=== PATIENT | female | born 1945 | race Caucasian/White ===

== ENCOUNTER 2023-06-06 10:48 | Emergency (ER) | payer MEDICARE, SELFPAY ==
[2023-06-06] VITALS (11 sets, daily range): BP systolic 146–165; BP diastolic 65–79; PULSE 74–91; RESP 16–20; TEMP 36.5–36.9; O2SAT 95–100; BMI 25.7
--- NOTE | ~2023-06-06 | CT_ITS ---
EXAM: Noncontrast CT scan of the head and cervical spine. INDICATION: Fall with posterior head strike COMPARISON: None available TECHNIQUE: Axial slices were obtained from skull base to vertex and displayed. This was followed by helical, multislice, multidetector axial images from the occiput to the upper thorax. Coronal and sagittal reformats of the cervical spine in addition to coronal reformats of the head were obtained at the technologist workstation. DLP: 887 mGy-cm FINDINGS: HEAD: There is no evidence of acute intracranial hemorrhage or territorial infarction. No abnormal mass effect or midline shift is appreciated. Andrews-white differentiation is well preserved. No extra-axial fluid collections. The ventricular system and cortical sulci are prominent, consistent with volume loss. There are areas of low density in the periventricular and subcortical white matter, most consistent with sequelae of microvascular ischemic change. The osseous structures and soft tissues are normal. There are calcifications of the cavernous internal carotid arteries. The visualized paranasal sinuses and mastoid air cells are well aerated. SPINE: Alignment of the cervical spine is within normal limits. Normal C1/2 articulation. Cervical vertebral body heights are maintained. There are degenerative changes of C1/2. There is moderate to severe loss of disc space height at the C4/5 and C6/7 levels. There are moderate-sized osteophytes within the mid to lower cervical spine. There is a prominent posterior disc osteophyte complex at the C4/5 level. There is moderate to severe diffuse facet hypertrophy bilaterally. Visualized lung apices are well aerated. CT/CT cervical spine wo IV con IMPRESSION: 1. No acute intracranial pathology. 2. No fractures or dislocations of the cervical spine.
--- NOTE | ~2023-06-06 | XR_ITS ---
EXAMINATION: XR CHEST CLINICAL INFORMATION: Dizziness. COMPARISON: None available. TECHNIQUE: 2 views of the chest were obtained. FINDINGS: No significant abnormality is noted involving the heart, lungs, mediastinum, bony thorax or soft tissues. XR/XR chest 2V IMPRESSION: Unremarkable chest examination.
--- NOTE | ~2023-06-06 | CT_ITS ---
EXAMINATION: CT ANGIOGRAM OF THE CHEST WITH AND WITHOUT CONTRAST (CT PULMONARY ANGIOGRAM FOR PE) CLINICAL INFORMATION: Syncope, elevated d-dimer. COMPARISON: Chest radiograph earlier today. TECHNIQUE: Prior to contrast administration, noncontrast localization images were obtained. Subsequently, multidetector volumetric imaging was performed from the thoracic inlet to below the diaphragms following the administration of 80 mL Omnipaque 350 intravenous contrast. No contrast reaction reported Sagittal, coronal, and MIP oblique sagittal reformatted images were obtained on the CT workstation, uploaded to PACS, and reviewed. This CT examination was performed using dose optimization techniques as appropriate, variously including the following: *Automated exposure control *Adjustment of mA and/or kV according to patient size (this includes techniques or standardized protocols for targeted exams where dose is matched to indication/reason for exam; i.e. extremities or head) *Use of iterative reconstruction technique Total exam dose-length product 160 mGy-cm FINDINGS: QUALITY OF STUDY/CONTRAST BOLUS: Satisfactory. PULMONARY ARTERIES: No pulmonary emboli. THORACIC AORTA: No aneurysm. LUNG: No focal consolidation or significant groundglass disease. Central airways are patent. Mild diffuse bronchial wall thickening. A few bilateral pulmonary nodules, for example a 3 mm solid nodule in the right apex (6:64), a 6 mm groundglass nodule in the right apex (6:74), a 5 mm groundglass nodule in the right middle lobe (6:212), a 5 mm solid nodule in the right upper lobe (6:118) and a 3 mm pulmonary nodule in the left upper lobe (6:185). PLEURA: No pleural effusion or pneumothorax. MEDIASTINUM: Mild cardiomegaly. Trace amount of pericardial fluid. No mediastinal or hilar lymphadenopathy. No evidence of septal bowing or right heart strain. CORONARY ARTERY CALCIFICATION: Urinary artery calcifications are present. CHEST WALL/AXILLA: No axillary or internal mammary lymphadenopathy. OSSEOUS STRUCTURES: No acute or suspicious osseous abnormality. UPPER ABDOMEN: Unremarkable. No reflux of contrast into the hepatic veins to suggest elevated right heart pressures. CT/CT angio chest PE protocol IMPRESSION: 1. No evidence of pulmonary embolism or increased right-sided heart pressures. 2. Mild diffuse bronchial wall thickening which is nonspecific and could be associated with asthma, bronchitis or reactive airways disease. 3. Multiple solid and groundglass pulmonary nodules, the largest measuring up to 6 mm. According to the UPDATED 2017 Fleischner Society recommendations, the advised follow-up imaging for multiple solid nodules measuring up to 6-8 mm is follow-up CT at 3 to 6 months.
--- NOTE | 2023-06-06 10:54 | ECG_ITS ---
Test Reason : SYNCOPE Blood Pressure : / mmHG Vent. Rate : 079 BPM Atrial Rate : 079 BPM P-R Int : 176 ms QRS Dur : 130 ms QT Int : 400 ms P-R-T Axes : 035 -30 112 degrees QTc Int : 458 ms Normal sinus rhythm Left axis deviation Left bundle branch block Abnormal ECG No previous ECGs available Referred By: Generic ED Physician Electronically Signed By:MARYAM BURCH MD
[2023-06-06 11:54] LABS: MANUAL DIFF FLAG NO
[2023-06-06 11:59] LABS: Basophils Absolute Auto 0.1 X10*3/uL (0.0-0.2); Basophils Percent Auto 0.5 % (0-2); Eosinophils Absolute Auto 0.2 X10*3/uL (0.0-0.4); Eosinophils Percent Auto 1.3 % (0-4); Hematocrit 36.3 % (37.0-47.0); Hemoglobin 11.9 g/dl (12.0-16.0); Imm Gran Abs Auto 0.05 X10*3/uL (0.00-0.03); Imm Gran Pct Auto 0.4 % (0.0-0.4); Lymphocytes Absolute Auto 2.9 X10*3/uL (1.2-4.9); Lymphocytes Percent Auto 24.7 % (20-40); Mean Corpuscular HGB Conc 32.8 g/dl (31.0-35.0); Mean Corpuscular Hemoglobin 31.6 pg (27.0-33.0); Mean Corpuscular Volume 96.3 fL (80.0-98.0); Mean Platelet Volume 10.3 fL (9.4-12.3); Monocytes Absolute Auto 0.7 X10*3/uL (0.1-1.2); Monocytes Percent Auto 5.9 % (2-11); Neutrophils Absolute Auto 7.8 x10*3/uL (2.0-8.3); Neutrophils Percent Auto 67.2 % (45-73); Platelet Count 209 X10*3/uL (160-400); Red Blood Count 3.77 X10*6/uL (4.20-5.50); Red Cell Distribution Width 14.3 % (11.0-16.0); White Blood Count 11.6 X10*3/uL (4.8-10.8)
[2023-06-06 12:09] LABS: Anion Gap 15 (12-20); Blood Urea Nitrogen 20 mg/dL (9-16); Calcium 9.9 mg/dL (8.4-10.2); Carbon Dioxide 27 mmol/L (22-29); Chloride 105 mmol/L (96-108); Creatinine Clr Calc Pharmacy 49.5; Estimated Glomerular Filt Rate > 60; Glucose Random 109 mg/dL (60-115); Potassium 4.6 mmol/L (3.3-5.1); Sodium 142 mmol/L (135-145)
--- NOTE | 2023-06-06 12:09 | MHC.PIE ---
Addendum entered by Galina Hooper RN 06/06/23 12:35: Patient is currently on aspirin. Patient reports small amount of blood to back of head. Patient currently in c-collar. Patient denies headache or dizziness at this time. Original Note: Patient came to ED via ambulance due to a syncope episode while in the shower. Patient reports feeling dizzy right before it happened. Patient reports head strike to back of head, denies pain at this time. Patient is alert and oriented, respirations even and unlabored. vss, normal sinus on monitor.
--- NOTE | 2023-06-06 12:21 | ED.DIZZY ---
HPI - Dizziness General Chief Complaint: Syncope Stated Complaint: SYNCOPE IN SHOWER,HIT HEAD,+CCOLLAR PER EMS Time Seen by Provider: 06/06/23 12:21 Source: patient, family (), EMS and RN notes reviewed Mode of arrival: EMS Limitations: no limitations History of Present Illness HPI Narrative: 78 year old female with pmhx significant for HTN and HDL presents to the ED today via EMS from home for evaluation of head pain s/p fall prior to arrival. Patient states that she had just gotten out of the shower and was drying off when she suddenly felt lightheaded. She tried making her way from the bathroom to her bedroom when she lost consciousness. Her in the next room heard the thud and immediately came to help patient. She immediately regained consciousness on his arrival. Reports posterior head strike on floor. She takes 81 mg aspirin daily. No anticoagulation. She only endorses feeling lightheaded prior to fall. Her only concern at present is posterior head pain. Not dizzy at present. Does not describe this as a room spinning sensation. States she has never had an episode like this before. She denies any preceding chest pain, vision changes, shortness of breath, palpitations. Denies recent travel or long car rides. Related Data Allergies Allergy/AdvReac Type Severity Reaction Status Date / Time Sulfa (Sulfonamide Allergy Flushing Verified 06/06/23 11:06 Antibiotics) Review of Systems Review of Systems: Constitutional: No fever, chills, fatigue, night sweats, weight changes ENT/Mouth: No ear pain, hearing loss, nasal congestion, sinus pain, rhinorrhea, sore throat Eyes: No eye pain, swelling, redness, vision changes, discharge Cardio: No chest pain, palpitations, NUNEZ, orthopnea, peripheral edema Pulm: No SOB, cough, sputum, wheezing, dyspnea, hemoptysis GI: No nausea, vomiting, hematemesis, abdominal pain, diarrhea, constipation, hematochezia, melena : No irregular bleeding, dysuria, frequency, urgency, hesitancy, hematuria, flank pain, urinary flow changes, urinary incontinence or retention MSK: No back pain, neck pain, joint pain, myalgias Skin: No lesions, rashes Neuro: No weakness, numbness, paresthesias, LOC, dizziness, headache Psych: No anxiety/panic, depression, SI/HI, AH/VH All other systems reviewed and are negative. PENDING SALE TO [facility] Past Medical History Attestation statement: The following information was validated with the patient. Source: old records reviewed and nursing notes reviewed Social History Social History Smoked in Last 30 Days: No Use of substances other than those prescribed or required for medical reasons: No Advance Directives: No Physical Exam Vital Signs: Vital Signs: Last Vital Signs Temp 98.5 F 06/06/23 19:47 Pulse 78 06/06/23 19:47 Resp 18 06/06/23 19:47 BP 165/68 H 06/06/23 19:47 Pulse Ox 95 06/06/23 19:47 O2 Del Method Room Air 06/06/23 19:47 BMI result Body Mass Index 25.7 Patient hypertensive, vitals otherwise WNL. Const: Other: + cervical collar in place, nontoxic appearing General: cooperative, healthy appearing, comfortable and no acute distress Nutritional Appearance: average body habitus Orientation/consciousness: patient oriented x3 Limitations: no limitations HEENT: Other: + 2 x 2 cm hematoma to posterior scalp. No active bleeding or open wound. Tender to palpation. No palpable deformity or skull fracture. Head: Yes No palpable skull fracture present, No Wilson's sign, Yes hematoma, No laceration, No raccoon eyes and No periorbital ecchymosis Ears: hearing grossly normal bilaterally General nose exam: Normal external nose present and Normal septum present Face and sinus: Yes normal facial exam Eyes: Other: + bilateral EOMs intact without entrapment General: appearance normal, both eyes and all related structures Pupils: Equal, round and reactive pupils present Neck: Other: + presents with cervical collar in place. On removal following imaging, there is no midline cervical spinous tenderness or palpable step-off deformity. Neck: Yes normal visual inspection and Yes full ROM Chest: Chest palpation & inspection: normal inspection of the chest and normal palpation of entire chest wall Resp: Effort & Inspection: normal respiratory effort, able to speak in complete sentences and symmetric chest movement Auscultation: clear to auscultation bilaterally Cardio: Jugular venous distension: no JVD Rate: regular rate Rhythm: regular rhythm GI: Inspection: Yes normal to inspection : General: Yes no CVA tenderness Back/Spine/Pelvis: Other: No midline spinous tenderness or step off deformity. No paraspinal muscle tenderness. Back: no CVA tenderness Skin: General skin exam: no rashes or lesions noted Neuro: Other: Strength 5/5 intact throughout. No saddle anesthesia.?Sensation intact to light touch.?Neurovascular intact distally.? General: patient oriented x3, gait normal, moves all extremities and no focal motor deficits Cranial nerves: Yes Equal, round and reactive pupils present Gait exam (Neuro): Normal gait present Motor exam (neuro): 5/5 motor strength present throughout and Pronator motor function not present Coordination: [id number]-[id number] test normal, [id number] test normal and Normal rapid alternating movements of the distal upper extremity present (Neuro) Pupils: Normal pupillary reactivity/response: bilateral Course Course Course Narrative: 1229-- CBC a slight leukocytosis to 11.6, no left shift. Slightly anemic with hemoglobin 11.9, hematocrit 36.3. No priors to compare to. Chemistry without acute electrolyte abnormality requiring intervention. BUN slightly elevated to 20, normal creatinine. Initial troponin undetectable, will obtain a repeat. Imaging and UA ordered. 1432-- CT head/brain does not exhibit acute bleed or skull fracture. CT cervical spine does not exhibit acute fracture or subluxation. Awaiting chest x-ray, UA and repeat trop. 1605-- chest x-ray unremarkable. Delta troponin now elevated to 10. This may be secondary to stress however will trend. D-dimer elevated to 962. Age adjusted D-dimer has a cutoff of 790 > VTE possible. Discussed these results with patient and educated her on the need to obtain CT angiogram of the chest. She is agreeable to this. She is currently denying chest pain, palpitations, shortness of breath, dyspnea, dizziness, calf pain. > patient stable and well appearing at the end of my shift. signed out to my colleague, Yakelin IBRAHIM, pending repeat troponin and CT angio chest Reevaluation(s) Reevaluation #1: Patient was given to me pending CT angio chest and repeat troponin. CT angio revealing No evidence of pulmonary embolism or increased right-sided heart pressures. Mild diffuse bronchial wall thickening which is nonspecific and could be associated with asthma, bronchitis or reactive airways disease. Multiple solid and groundglass pulmonary nodules, the largest measuring up to 6 mm. According to the UPDATED 2017 Fleischner Society recommendations, the advised follow-up imaging for multiple solid nodules measuring up to 6-8 mm is follow-up CT at 3 to 6 months. Third troponin returns, is 12.9. Given that this is a flat troponin, patient is asymptomatic, is walking around the emergency room without any dizziness, I discussed with patient discharge instructions. Also discussed the nodule seen on CT scan. She is aware of these CT scans. She has a primary care physician who she can follow-up with. No other complaints or concerns at this time. She is stable for discharge. Time: 20:40 Medications Administered Discontinued Medications Generic Name Dose Route Start Last Admin Trade Name Freq PRN Reason Stop Dose Admin Sodium Chloride 1,000 mls @ 999 mls/hr 06/06/23 14:45 06/06/23 18:57 Ns IV 06/06/23 15:45 Infused .Q1H1M JACKIE Infusion Iohexol 100 ml 06/06/23 16:26 06/06/23 16:26 Iohexol 350 Mg/Ml 100 Ml Infus..Btl IV 06/06/23 16:27 65 ml ONCE ONE Administration Medical Decision Making Medical Decision Making [facility] Narrative: 78 year old female with pmhx significant for HTN and HDL presents to the ED today via EMS from home for evaluation of head pain s/p fall prior to arrival. Patient hypertensive to 146/67, vitals otherwise WNL. She is nontoxic-appearing and in no acute distress. Presents with C-collar in place. There is a small hematoma palpable along posterior scalp. No active bleeding or open wound. No palpable skull fracture. PERRLA. EOMs intact without entrapment. Exam nonfocal. Cerebellum intact. Differential diagnosis includes headache, migraine, concussion, ICH, scalp hematoma, dehydration, orthostatic hypotension, cervical fracture, subluxation, hypertension, vertigo, pneumonia, UTI. Lower suspicion for pulmonary embolism, CVA/TIA, cerebellar stroke, dissection, ACS, arrhythmia, hypertensive emergency. Plan for basic labs, ekg, imaging, and re-evaluation. Differential Diagnosis Differential Diagnoses: The differential diagnosis associated with the presentation includes As above Admission/Observation Not indicated Lab Data [facility] Lab Attestation statement: I reviewed the patient's lab results. As above 06/06/23 11:51 06/06/23 11:51 Labs: Lab Results 06/06/23 06/06/23 06/06/23 Range/Units 11:51 14:47 15:38 WBC 11.6 H (4.8-10.8) X10*3/uL RBC 3.77 L (4.20-5.50) X10*6/uL Hgb 11.9 L (12.0-16.0) g/dl Hct 36.3 L (37.0-47.0) % MCV 96.3 (80.0-98.0) fL MCH 31.6 (27.0-33.0) pg MCHC 32.8 (31.0-35.0) g/dl RDW 14.3 (11.0-16.0) % Plt Count 209 (160-400) X10*3/uL MPV 10.3 (9.4-12.3) fL Immature Gran % (Auto) 0.4 (0.0-0.4) % Neut % (Auto) 67.2 (45-73) % Lymph % (Auto) 24.7 (20-40) % [place]urry % (Auto) 5.9 (2-11) % Eos % (Auto) 1.3 (0-4) % Baso % (Auto) 0.5 (0-2) % Lymph # (Auto) 2.9 (1.2-4.9) X10*3/uL Scurry # (Auto) 0.7 (0.1-1.2) X10*3/uL Eos # (Auto) 0.2 (0.0-0.4) X10*3/uL Baso # (Auto) 0.1 (0.0-0.2) X10*3/uL Abs Immat Gran (auto) 0.05 H (0.00-0.03) X10*3/uL Absolute Neuts (auto) 7.8 (2.0-8.3) x10*3/uL Absolute Nucleated RBC 0.000 (0.0-0.012) X10*3/uL Nucleated RBC % (auto) 0.0 (0.0-0.2) /100WBC D-Dimer High Sensitivty 962 NG/ML Sodium 142 (135-145) mmol/L Potassium 4.6 (3.3-5.1) mmol/L Chloride 105 (96-108) mmol/L Carbon Dioxide 27 (22-29) mmol/L Anion Gap 15 (12-20) BUN 20 H (9-16) mg/dL Creatinine 0.84 (0.5-1.4) mg/dL Estim Creat Clear Calc 49.5 Estimated GFR > 60 Random Glucose 109 (60-115) mg/dL Calcium 9.9 (8.4-10.2) mg/dL Magnesium 1.8 (1.6-2.6) mg/dL Troponin I High Sens < 2.7 10.9 D (<3.5-17.0) ng/L Lipase 30 (8-78) U/L Urine Color Urine Appearance Urine pH (5.0-9.0) Ur Specific [place] (1.005-1.025) Urine Protein (Neg-Trace) mg/dL Urine Glucose (UA) (Negative) mg/dL Urine Ketones (Negative) mg/dL Urine Blood (Negative) Urine Nitrite (Negative) Ur Leukocyte Esterase (Negative) Urine RBC (0-2) /HPF Urine WBC (0-5) /HPF Ur Squamous Epith Cells (0-2) /HPF Urine Bacteria (None Seen) Hyaline Casts (0-2) /LPF 06/06/23 06/06/23 Range/Units 15:39 19:47 WBC (4.8-10.8) X10*3/uL RBC (4.20-5.50) X10*6/uL Hgb (12.0-16.0) g/dl Hct (37.0-47.0) % MCV (80.0-98.0) fL MCH (27.0-33.0) pg MCHC (31.0-35.0) g/dl RDW (11.0-16.0) % Plt Count (160-400) X10*3/uL MPV (9.4-12.3) fL Immature Gran % (Auto) (0.0-0.4) % Neut % (Auto) (45-73) % Lymph % (Auto) (20-40) % Scurry % (Auto) (2-11) % Eos % (Auto) (0-4) % Baso % (Auto) (0-2) % Lymph # (Auto) (1.2-4.9) X10*3/uL Scurry # (Auto) (0.1-1.2) X10*3/uL Eos # (Auto) (0.0-0.4) X10*3/uL Baso # (Auto) (0.0-0.2) X10*3/uL Abs Immat Gran (auto) (0.00-0.03) X10*3/uL Absolute Neuts (auto) (2.0-8.3) x10*3/uL Absolute Nucleated RBC (0.0-0.012) X10*3/uL Nucleated RBC % (auto) (0.0-0.2) /100WBC D-Dimer High Sensitivty NG/ML Sodium (135-145) mmol/L Potassium (3.3-5.1) mmol/L Chloride (96-108) mmol/L Carbon Dioxide (22-29) mmol/L Anion Gap (12-20) BUN (9-16) mg/dL Creatinine (0.5-1.4) mg/dL Estim Creat Clear Calc Estimated GFR Random Glucose (60-115) mg/dL Calcium (8.4-10.2) mg/dL Magnesium (1.6-2.6) mg/dL Troponin I High Sens 12.6 (<3.5-17.0) ng/L Lipase (8-78) U/L Urine Color Yellow Urine Appearance Clear Urine pH 7.0 (5.0-9.0) Ur Specific [place] 1.010 (1.005-1.025) Urine Protein Negative (Neg-Trace) mg/dL Urine Glucose (UA) Negative (Negative) mg/dL Urine Ketones Negative (Negative) mg/dL Urine Blood Small (1+) H (Negative) Urine Nitrite Negative (Negative) Ur Leukocyte Esterase Small (1+) H (Negative) Urine RBC 6-10 H (0-2) /HPF Urine WBC 0-5 (0-5) /HPF Ur Squamous Epith Cells 0-2 (0-2) /HPF Urine Bacteria None Seen (None Seen) Hyaline Casts 0-2 (0-2) /LPF Independent Interpretation I performed an independent interpretation of an: EKG, Plain X-Ray and CT Scan Interpretation: EKG showing normal sinus rhythm with left bundle-branch block, rate of 79 beats per minute, QT 400, QTC 458, no acute ischemic changes or ST elevations. I have personally reviewed CT scans and agree with radiologist's interpretation. I have personally reviewed chest x-ray and agree with radiologist's interpretation. Radiology Impression Discussion of test interpretation with radiology: I have reviewed the radiologist's reading. Radiologist Impression: CT head/brain/cervical spine wo IV con IMPRESSION: 1. No acute intracranial pathology. 2. No fractures or dislocations of the cervical spine. XR chest 2V IMPRESSION: Unremarkable chest examination. CT angio chest PE protocol IMPRESSION: 1. No evidence of pulmonary embolism or increased right-sided heart pressures. 2. Mild diffuse bronchial wall thickening which is nonspecific and could be associated with asthma, bronchitis or reactive airways disease. 3. Multiple solid and groundglass pulmonary nodules, the largest measuring up to 6 mm. According to the UPDATED 2017 Fleischner Society recommendations, the advised follow-up imaging for multiple solid nodules measuring up to 6-8 mm is follow-up CT at 3 to 6 months. Independent Historian Clinical information obtained from an independent historian. History obtained from or confirmed by: Spouse () and EMS Prescription Management I considered prescription management with: Pain Medication Chronic Conditions Patient?s care impacted by: Hypertension Social Determinants Patient?s care significantly limited by Social Determinants of Health including: Other Social Determinant of Health Discharge Plan Discharge Clinical Impression: Syncope, Hematoma of scalp Patient Disposition: Still a Patient Instructions: Syncope (ED), Scalp Contusion in Adults (ED) Additional Instructions: Your labs today are reassuring. Your chest x-ray is normal. The CT scan of your head/brain does not show acute bleed or skull fracture. The CT scan of your neck does not show acute fracture. CT scan of your chest does not show pulmonary embolism. There are multiple solid and ground-glass pulmonary nodules largest measuring up to 6 mm. It is recommended to have a follow-up CT at 3-6 months. Follow-up with your primary care physician regarding this finding. Your chest x-ray is normal. Your urine is negative for infection. Return to the ED with new or worsening symptoms. In the case of an emergency call 911.
[2023-06-06 12:22] LABS: Troponin-I High Sensitivity < 2.7 ng/L (<3.5-17.0)
[2023-06-06 13:29] LABS: Lipase 30 U/L (8-78); Magnesium 1.8 mg/dL (1.6-2.6)
[2023-06-06 15:14] LABS: Troponin-I High Sensitivity 10.9 ng/L (<3.5-17.0)
[2023-06-06] MEDS: 0.9 % Sodium Chloride 1,000 ML 999 ML IV (15:43)
--- NOTE | 2023-06-06 15:45 | PC.NURSE ---
Patient up to bathroom with steady gait, patient states feeling weird but cannot desribe how.
[2023-06-06 15:48] LABS: Appearance Urine Clear; Color Urine Yellow; Glucose Urine UA Negative (Negative); Leukocyte Esterase Urine Small (1+) (Negative); Nitrite Urine Negative (Negative); UMIC TRIGGER UACC YES; Urine Blood Small (1+) (Negative); Urine Ketones Negative (Negative); Urine Protein Negative (Neg-Trace)
[2023-06-06 15:55] LABS: D Dimer High Sensitivity 962 NG/ML
[2023-06-06 16:00] LABS: Bacteria Urine None Seen (None Seen); Hyaline Casts Urine 0-2 /LPF (0-2); Squamous Epithelial Cell Urine 0-2 /HPF (0-2); UACC Culture Trigger YES; WBC Urine 0-5 /HPF (0-5)
[2023-06-06] MEDS: iohexoL 350 MG/ML 100 ML INFUS..BTL IV (16:26)
[2023-06-06 20:34] LABS: Troponin-I High Sensitivity 12.6 ng/L (<3.5-17.0)
== END 2023-06-06 21:08 | disposition home or self-care (01) ==
PROVIDERS: Physician Assistant Medical; Emergency Provider Emergency Medicine Emergency Medical Services
DX: R55 Syncope and collapse (principal); S00.03XA Contusion of scalp, initial encounter; W18.39XA Other fall on same level, initial encounter; R79.89 Other specified abnormal findings of blood chemistry; I10 Essential (primary) hypertension; E78.5 Hyperlipidemia, unspecified; D64.9 Anemia, unspecified; Z79.82 Long term (current) use of aspirin; Y93.E1 Activity, personal bathing and showering; Y92.012 Bathroom of single-family (private) house as the place of occurrence of the external cause; Y99.9 Unspecified external cause status
CPT/HCPCS: 36415; 70450; 71046; 71275; 72125; 80048; 81001; 83690; 83735; 84484; 85025; 85379; 87086; 93005; 96360; 96361; 99284; 99285; Q9967

== ENCOUNTER → 2023-06-06 10:54 | Outpatient (BNV) | payer MEDICARE, SELFPAY | PROVIDERS: Emergency Provider Emergency Medicine Emergency Medical Services; Visit Provider Internal Medicine Cardiovascular Disease | DX: R94.31 Abnormal electrocardiogram [ECG] [EKG] (principal) | CPT/HCPCS: 93010 ==